=== PATIENT | female | born 1995 | race Caucasian/White ===

== ENCOUNTER 2022-03-07 05:29 | Inpatient (IN) | payer OTHER ==
[2022-03-07] VITALS (7 sets, daily range): BP systolic 109–134; BP diastolic 54–77
[~2022-03-07] VITALS: Ht 167.6 cm; Wt 88.2 kg
[~2022-03-07 05:29] MED LIST: D 101000 PO; ECOT81TA5 PO; FOLI0.4T5 PO; PREN1CHW6 PO
[2022-03-07] MEDS ORDERED: LACTATED RINGER'S 1000 ML IV STA (05:32)
[2022-03-07] MEDS ORDERED: BICITRA 30ML SOLN UDC PO ONE (05:35)
[2022-03-07] MEDS ORDERED: LR 1,000 ML IV SCH ×2 (05:35→06:00)
[2022-03-07] MEDS ORDERED: ceFAZolin SOD 2 GM in IV 1 EA IV ONE (06:00)
[2022-03-07 06:28] LABS: HEMOGLOBIN 12.3 g/dl (12.0-15.5); MEAN CORPUSCULAR HEMOGLOBIN 29.9 pg (27.0-33.0); MEAN CORPUSCULAR HGB CONC 32.4 g/dl (32.0-36.5); MEAN CORPUSCULAR VOLUME 92.5 fl (80.0-96.0); PLATELET COUNT, AUTOMATED 161 10^3/uL (150-450); RED BLOOD COUNT 4.11 10^6/uL (4.00-5.40); WHITE BLOOD COUNT 10.3 10^3/uL (4.0-10.0)
[2022-03-07] MEDS ORDERED: MORPHINE PRES-FREE INJ 10 MG/10 ML VIAL As Ordered ONE (07:32)
[2022-03-07] MEDS ORDERED: OXYTOCIN INJ 10UNITS/ML 1ML VIAL As Ordered ONE ×2 (07:32→08:45)
[2022-03-07] MEDS ORDERED: KETOROLAC 60MG 2ML VIAL As Ordered ONE (07:32)
[2022-03-07] MEDS ORDERED: BUPIVACAINE HCL 0.25% 10ML VIAL SC ONE (07:50)
[2022-03-07] MEDS ORDERED: ONDANSETRON 4MG 2ML VIAL As Ordered ONE (07:56)
[2022-03-07] MEDS ORDERED: ePHEDrine SULFATE 25 MG/5 ML(5MG/ML) SYRINGE As Ordered ONE (08:52)
[2022-03-07] MEDS ORDERED: PHENYLephrine 500MCG 5ML (100MCG/ML) SYRINGE As Ordered ONE (08:52)
[2022-03-07 08:55] LABS: CORD GAS ABE V -3.3; CORD GAS HCO3 V 22.3 MEQ/L; CORD GAS O2 SAT V 67.6 %; CORD GAS PCO2 V 41.9 mmHg; CORD GAS PH V 7.344 UNITS; CORD GAS TCO2 V 23.6 MEQ/L
[2022-03-07 08:57] LABS: CORD GAS ABE V -1.2; CORD GAS HCO3 V 24.8 MEQ/L; CORD GAS O2 SAT V 65.7 %; CORD GAS PCO2 V 45.9 mmHg; CORD GAS PH V 7.35 UNITS; CORD GAS PO2 V 27.9 mmHg; CORD GAS SBC V 22.7 MEQ/L; CORD GAS TCO2 V 26.2 MEQ/L
[2022-03-07] MEDS ORDERED: ANUSOL HC CREAM 30GM TOP PRN (09:25)
[2022-03-07] MEDS ORDERED: METHYLERGONOVINE MALEATE 0.2 MG TAB PO PRN (09:25)
[2022-03-07] MEDS ORDERED: METHYLERGONOVINE MALEATE 0.2 MG/ML VIAL (J2210) IM PRN (09:25)
[2022-03-07] MEDS ORDERED: ONDANSETRON 4MG 2ML VIAL IV PRN ×2 (09:25→09:50)
[2022-03-07] MEDS ORDERED: oxyCODONE 5MG TAB PO PRN ×2 (09:25→09:50)
[2022-03-07] MEDS ORDERED: RHOGAM 300MCG (1500IU) INJ IM SCH (09:25)
[2022-03-07] MEDS ORDERED: OXYTOCIN DRIP 30 UNITS in IV 1 EA IV SCH (09:25)
[2022-03-07] MEDS ORDERED: MORPHINE 2 MG/ML 1ML VIAL IV PRN (09:25)
[2022-03-07] MEDS ORDERED: OXYTOCIN 30UNITS IN 0.9% NaCl 500ML IV BAG As Ordered ONE (09:26)
[2022-03-07] MEDS ORDERED: HYDROMORPHONE HCL 0.5 MG/ 0.5 ML SYRINGE IV PRN (09:50)
[2022-03-07] MEDS ORDERED: KETOROLAC 30 MG/ML 1ML VIAL As Ordered ONE (09:50)
[2022-03-07] MEDS ORDERED: METOCLOPRAMIDE INJ 10MG/2ML VIAL IV PRN (09:50)
[2022-03-07] MEDS ORDERED: **NOTE PATIENT COMMENT** MISC XX SCH (09:50)
[2022-03-07] MEDS ORDERED: fentaNYL 100 MCG/2 ML INJECTION IV PRN (09:50)
[2022-03-07] MEDS ORDERED: diphenhydrAMINE 50MG/ML VIAL IV PRN (09:50)
[2022-03-07] MEDS ORDERED: NALOXONE INJ 0.4MG/1ML VIAL IV PRN ×2 (09:50)
[2022-03-07] MEDS: KETOROLAC 30 MG/ML 1ML VIAL IV SCH ×3 (09:56→21:32)
[2022-03-07] MEDS: SLF 3 ML SYR IV SCH ×2 (11:21→17:35)
[2022-03-07] MEDS: LR 1,000 ML IV SCH ×2 (11:21→15:33)
[2022-03-07] MEDS: ENOXAPARIN 40MG/0.4ML SYRINGE (J1650 PER 10MG) SC SCH (15:33)
[2022-03-07] MEDS ORDERED: LR 500 ML IV ONE (17:15)
[2022-03-07] MEDS: DOCUSATE SODIUM 100MG CAPSULE PO SCH (21:32)
[2022-03-08] MEDS: LR 1,000 ML IV SCH ×2 (01:25→07:06)
[2022-03-08] MEDS: SLF 3 ML SYR IV SCH (01:50)
[2022-03-08 02:00] VITALS: BP 118/62
[2022-03-08] MEDS: KETOROLAC 30 MG/ML 1ML VIAL IV SCH (04:04)
[2022-03-08 06:00] VITALS: BP 114/56
[2022-03-08 06:42] LABS: HEMATOCRIT 25.7 % (36.0-47.0); MEAN CORPUSCULAR HEMOGLOBIN 30.3 pg (27.0-33.0); MEAN CORPUSCULAR HGB CONC 31.9 g/dl (32.0-36.5); MEAN CORPUSCULAR VOLUME 94.8 fl (80.0-96.0); PLATELET COUNT, AUTOMATED 123 10^3/uL (150-450); RED BLOOD COUNT 2.71 10^6/uL (4.00-5.40); WHITE BLOOD COUNT 10.1 10^3/uL (4.0-10.0)
[2022-03-08 06:44] LABS: HEMOGLOBIN 8.2 g/dl (12.0-15.5)
[2022-03-08] MEDS: DOCUSATE SODIUM 100MG CAPSULE PO SCH ×2 (08:45→20:07)
[2022-03-08] MEDS: ACETAMINOPHEN 500 MG TAB PO PRN (08:45)
[2022-03-08] MEDS: PRENATAL VITAMINS CHEWABLE TABLET PO SCH (08:45)
[2022-03-08 10:00] VITALS: BP 120/58
[2022-03-08] MEDS: IBUPROFEN 800 MG TAB PO SCH ×2 (13:13→20:08)
[2022-03-08 14:00] VITALS: BP 128/58
[2022-03-08] MEDS: oxyCODONE 5MG TAB PO PRN ×2 (14:45→20:48)
[2022-03-08] MEDS: ENOXAPARIN 40MG/0.4ML SYRINGE (J1650 PER 10MG) SC SCH (16:08)
[2022-03-08 18:00] VITALS: BP 133/68
[2022-03-08] MEDS: SIMETHICONE 80MG CHEW TAB PO PRN (20:14)
[2022-03-08] MEDS ORDERED: MOM 30ML SUSPENSION UDC PO ONE (21:55)
[2022-03-08 21:59] VITALS: BP 130/72
[2022-03-08 22:47] LABS: HEMATOCRIT 28.1 % (36.0-47.0); HEMOGLOBIN 8.9 g/dl (12.0-15.5); MEAN CORPUSCULAR HEMOGLOBIN 30.2 pg (27.0-33.0); MEAN CORPUSCULAR HGB CONC 31.7 g/dl (32.0-36.5); MEAN CORPUSCULAR VOLUME 95.3 fl (80.0-96.0); PLATELET COUNT, AUTOMATED 155 10^3/uL (150-450); RED BLOOD COUNT 2.95 10^6/uL (4.00-5.40); WHITE BLOOD COUNT 12.4 10^3/uL (4.0-10.0)
[2022-03-09 02:00] VITALS: BP 125/72
[2022-03-09] MEDS: IBUPROFEN 800 MG TAB PO SCH ×3 (04:05→20:06)
[2022-03-09 06:00] VITALS: BP 128/96
[2022-03-09] MEDS: DOCUSATE SODIUM 100MG CAPSULE PO SCH ×2 (08:25→20:05)
[2022-03-09] MEDS: PRENATAL VITAMINS CHEWABLE TABLET PO SCH (08:26)
[2022-03-09] MEDS: SIMETHICONE 80MG CHEW TAB PO PRN (08:31)
[2022-03-09] MEDS: ACETAMINOPHEN 500 MG TAB PO PRN ×2 (08:46→20:06)
[2022-03-09] MEDS ORDERED: MEASLES,MUMPS,RUBELLA VACCINE INJ (MMR-II) SC.IMMUN ONE (09:00)
[2022-03-09] MEDS: ENOXAPARIN 40MG/0.4ML SYRINGE (J1650 PER 10MG) SC SCH (16:59)
[2022-03-09 18:00] VITALS: BP 135/85
[2022-03-10] MEDS: IBUPROFEN 800 MG TAB PO SCH (04:03)
[2022-03-10 06:00] VITALS: BP 110/67
[2022-03-10] MEDS ORDERED: COLA100C5 PO (06:35)
[2022-03-10] MEDS ORDERED: ACET-683 PO (06:35)
[2022-03-10] MEDS ORDERED: IBUP80TA PO (06:35)
[2022-03-10] MEDS ORDERED: OXYC-517 PO (06:35)
[2022-03-10] MEDS: DOCUSATE SODIUM 100MG CAPSULE PO SCH (07:43)
[2022-03-10] MEDS: PRENATAL VITAMINS CHEWABLE TABLET PO SCH (07:44)
== END 2022-03-10 11:20 | disposition home or self-care (01) | DRG 773 ==
LOC: M LDI 05:29 → M OBS 11:01
PROVIDERS: ADMIT Obstetrics & Gynecology; ATTEND Obstetrics & Gynecology
PROC: 10D00Z1 Extraction of Products of Conception, Low, Open Approach (ICD-10-PCS; principal; 2022-03-07 07:30)
DX: O32.2XX2 Maternal care for transverse and oblique lie, fetus 2 (principal); O30.033 Twin pregnancy, monochorionic/diamniotic, third trimester; Z3A.36 36 weeks gestation of pregnancy; Z37.2 Twins, both liveborn